=== PATIENT | female | born 1990 | race Caucasian/White ===

== ENCOUNTER 2021-08-12 13:40 | Emergency (ER) | payer OTHER, SELFPAY ==
[2021-08-12 13:41] VITALS: BP 116/74; PULSE 85; RESP 16; TEMP 35.8; O2SAT 96; BMI 30.8
[2021-08-12 14:47] LABS: Bacteria 0 SEEN /hpf (None Seen); Mucous, Urine 0 SEEN /hpf (<or=2+); Red Blood Cells-Urine 0 SEEN /hpf (0-5); Squamous Epithelial Cells - UA 0 SEEN /hpf (5-10); White Blood Cells 0 SEEN /hpf (0-5)
[2021-08-12 14:53] LABS: Color, Urine Yellow (Yellow); Glucose, Dipstick Normal (Normal); Ketone-Dipstick Negative (Negative); Leukocyte Esterase-Dipstick Negative /ul (Negative); Nitrite-Dipstick Negative (Negative); Occult Blood-Urine Negative /ul (Negative); Protein-Dipstick Negative (Negative); Urine Bilirubin Dipstick Negative (Negative); Urine Clarity Clear (Clear); Urine Urobilinogen Normal (Normal)
[2021-08-12 15:00] LABS: Absolute Lymphocyte Count 2.03 X10^3/uL (0.83-4.51); Absolute Neutrophil Count 11.4 X10^3/uL (2.0-7.7); Basophil# 0.04 X10^3/uL; Basophil% 0.3 % (0-1); Eosinophil# 0.11 X10^3/uL; Eosinophils% 0.8 % (0-5); Hematocrit 33.2 % (37-47); Hemoglobin 10.6 g/dL (12.0-15.0); Lymphocyte # 2.03 X10^3/ul (0.83-4.51); Lymphocyte % 14.3 % (19-41); Mean Corp Hgb Conc 31.9 g/dL (32-36); Mean Corpuscular Volume 84.5 fL (81-99); Mean Platelet Vol. 10.2 fl (6.2-12.0); Monocyte# 0.51 X10^3/uL; Monocyte% 3.6 % (0-10); NRBC Flagged by Analyzer 0 % (0-5); Neutrophil # 11.35 X10^3/uL (2.7-7.7); Neutrophil % 79.6 % (47-70); Platelet Count 295 K/mm3 (150-450); RBC Distribution Width CV 14.2 % (11.6-14.6); RBC Distribution Width SD 43.8 fl (35.1-43.9); Red Blood Count 3.93 M/mm3 (4.2-5.4); White Blood Count 14.2 K/mm3 (4.4-11.0)
--- NOTE | 2021-08-12 15:08 | EDS_ITS ---
HPI <OSITO Parks - Last Filed: 08/12/21 16:28> History of Present Illness Chief Complaint: General Illness Narrative Narrative: 31-year-old female who is approximately 25 weeks presents with concern for dehydration. This week she has had a cold with fatigue, runny nose, and dry cough. Earlier this week she went to urgent care and had negative Covid and influenza testing. Today she noted her heart rate was in the 130s on her Fitbit. She increased her fluids at home but it stayed in the low 100s. She also felt lightheaded and has not eaten much today. When she called her BUSINESS PROCESS ENGINEER they recommended she come to the ED for evaluation. She denies chest pain, shortness of breath, or syncope. No abdominal pain, vaginal bleeding or fluids. No urinary symptoms. PFSH <OSITO Parks - Last Filed: 08/12/21 16:28> PFSH Medical History no medical history Allergy/AdvReac Type Severity Reaction Status Date / Time No Known Allergies Allergy Verified 08/12/21 13:43 Social History Smoking Status: Never smoker ROS <OSITO Parks - Last Filed: 08/12/21 16:28> ROS ED ROS Narrative Constitutional: Negative for fever, chills, malaise. Eyes: Negative for visual change. ENT: Negative for sore throat, ear pain, rhinorrhea. CVS: Negative for palpitations, chest pain, syncope. Respiratory: Negative for shortness of breath, cough, orthopnea. GI: Positive for nausea. Negative for abdominal pain, vomiting, diarrhea, constipation, melena, hematochezia. : Negative for dysuria, hematuria or frequency. Neuro: Negative for headache, motor/sensory dysfunction. Skin: Negative for rash, abscess, or wound. Musc: Negative for joint pain, swelling, trauma. Heme: Negative for easy bruising, bleeding, lymphadenopathy. EXAM <OSITO Parks - Last Filed: 08/12/21 16:28> Physical Exam Narrative Exam Narrative: CONST: Patient sitting in no acute distress. EYES: Normal inspection. ENT: Normal inspection, moist mucous membranes. NECK: Normal inspection. RESP: No respiratory distress, CTAB. CVS: Regular rate and rhythm, no murmur, no gallop. ABD: Gravid abdomen is soft and nontender, no guarding or rebound. SKIN: Color normal, no rash, warm, dry, intact. EXTREMITIES: Normal appearance, no pedal edema. NEURO: Oriented x4. PSYCH: Normal affect. Const Vital Signs: 08/12/21 13:41 08/12/21 15:26 Temperature 96.5 F L Temperature Source Temporal Pulse Rate 85 Respiratory Rate 16 Respiratory Effort Normal Non-Labored Respiratory Pattern Normal Blood Pressure 116/74 Blood Pressure Mean 88 Pulse Ox 96 Oxygen Delivery Method Room Air <Jefferson Canchola MD - Last Filed: 08/12/21 22:53> Physical Exam Const Vital Signs: 08/12/21 13:41 08/12/21 15:26 Temperature 96.5 F L Temperature Source Temporal Pulse Rate 85 Respiratory Rate 16 Respiratory Effort Normal Non-Labored Respiratory Pattern Normal Blood Pressure 116/74 Blood Pressure Mean 88 Pulse Ox 96 Oxygen Delivery Method Room Air MDM <OSITO Parks - Last Filed: 08/12/21 16:28> [facility] Narrative Medical decision making narrative: Patient presents with concern for dehydration and second trimester . She is also had a recent cold. She appears well and nontoxic. Afebrile and vital signs within normal limits. On exam she has moist mucous membranes. Heart is regular. Lungs clear. Gravid abdomen is soft and nontender. CBC shows white count of 14.2 and mild anemia at 10.6. She does have a long history of anemia. BMP is normal. UA is negative and has no bacteria. Her rapid COVID-19 test is negative. Patient was treated with 1 L of lactated Ringer's and Zofran. Her symptoms are most consistent with a URI but with normal vital signs and work-up I feel she can be discharged home to follow- up with her BUSINESS PROCESS ENGINEER. She was comfortable with this plan and discharged in stable condition. 1. URI 2. Second trimester of Lab Data Labs: Laboratory Results - last 24 hr 08/12/21 08/12/21 08/12/21 14:35 14:40 14:40 WBC 14.2 H RBC 3.93 L Hgb 10.6 L Hct 33.2 L MCV 84.5 MCH 27.0 MCHC 31.9 L RDW Std Deviation 43.8 RDW Coeff of Miriam 14.2 Plt Count 295 MPV 10.2 Immature Gran % (Auto) 1.400 H Neut % (Auto) 79.6 H Lymph % (Auto) 14.3 L Dent % (Auto) 3.6 Eos % (Auto) 0.8 Baso % (Auto) 0.3 Absolute Neuts (auto) 11.4 H Absolute Lymphs (auto) 2.03 Nucleated RBC % 0 Sodium 137 Potassium 3.6 Chloride 107 Carbon Dioxide 27.0 Anion Gap 3 L BUN 6 L Creatinine 0.51 L Estim Creat Clear Calc 133.43 Est GFR (MDRD) Af Amer 181 Est GFR (MDRD) Non-Af 149 BUN/Creatinine Ratio 11.7 Glucose 90 Calcium 9.1 Urine Color Yellow Urine Clarity Clear Urine pH 7.0 Ur Specific Easley 1.010 Urine Protein Negative Urine Glucose (UA) Normal Urine Ketones Negative Urine Occult Blood Negative Urine Nitrite Negative Urine Bilirubin Negative Urine Urobilinogen Normal Ur Leukocyte Esterase Negative Urine RBC 0 SEEN Urine WBC 0 SEEN Ur Squamous Epith Cells 0 SEEN Urine Bacteria 0 SEEN Urine Mucus 0 SEEN <Jefferson Canchola MD - Last Filed: 08/12/21 22:53> MDM MDM Narrative Medical decision making narrative: ATTENDING NOTE: Dr. Canchola: The patient was seen in conjunction with the PA-C/nurse practitioner. I performed a history and physical, and agree with the management of this patient. I agree with noted documentation and plan. I discussed the plan of care and final disposition with the physician associate/nurse practitioner. Concern for dehydration with second trimester , concern for Covid. Afebrile. Vital signs noted. Gravid uterus. Regular rate and rhythm. Lungs clear to auscultation bilaterally. Check labs. Check Covid swab. Discharge. Lab Data Attestation: I reviewed the patient's lab results. Labs: Laboratory Results - last 24 hr 08/12/21 08/12/21 08/12/21 14:35 14:40 14:40 WBC 14.2 H RBC 3.93 L Hgb 10.6 L Hct 33.2 L MCV 84.5 MCH 27.0 MCHC 31.9 L RDW Std Deviation 43.8 RDW Coeff of Miriam 14.2 Plt Count 295 MPV 10.2 Immature Gran % (Auto) 1.400 H Neut % (Auto) 79.6 H Lymph % (Auto) 14.3 L Dent % (Auto) 3.6 Eos % (Auto) 0.8 Baso % (Auto) 0.3 Absolute Neuts (auto) 11.4 H Absolute Lymphs (auto) 2.03 Nucleated RBC % 0 Sodium 137 Potassium 3.6 Chloride 107 Carbon Dioxide 27.0 Anion Gap 3 L BUN 6 L Creatinine 0.51 L Estim Creat Clear Calc 133.43 Est GFR (MDRD) Af Amer 181 Est GFR (MDRD) Non-Af 149 BUN/Creatinine Ratio 11.7 Glucose 90 Calcium 9.1 Urine Color Yellow Urine Clarity Clear Urine pH 7.0 Ur Specific Easley 1.010 Urine Protein Negative Urine Glucose (UA) Normal Urine Ketones Negative Urine Occult Blood Negative Urine Nitrite Negative Urine Bilirubin Negative Urine Urobilinogen Normal Ur Leukocyte Esterase Negative Urine RBC 0 SEEN Urine WBC 0 SEEN Ur Squamous Epith Cells 0 SEEN Urine Bacteria 0 SEEN Urine Mucus 0 SEEN Discharge Plan Triage Chief Complaint: General Illness ED Provider: Sondra Kerr Dx/Rx/DC Orders Clinical Impression: URI (upper respiratory infection) Instructions: ED URI, Viral, No Abx (Adult) Primary Care Provider: Huang Messer Referrals: Huang Messer MD [Primary Care Provider] - Activity Restrictions/Additional Instructions: Today your blood work showed that you are mildly anemic. Your electrolytes and kidney function were normal. Your urine look normal. There was no evidence of dehydration in your blood work. The Covid test was negative. With your cold and fatigue you likely have a viral illness. You were given IV fluids and nausea medicine and we feel you are safe to go home and follow-up with your BUSINESS PROCESS ENGINEER. Disposition Disposition: Home, Self Care Discharge Date/Time: 08/12/21 16:28
[2021-08-12 15:15] LABS: Anion Gap 3 (5-15); BUN 6 mg/dL (7-18); BUN/Creat Ratio 11.7 RATIO (10-20); Calcium,Total 9.1 mg/dL (8.5-10.1); Chloride 107 mmol/L (98-107); Creatinine, Serum 0.51 mg/dL (0.55-1.02); EST Glomerular Filtration Rate 149 mL/min (>60); Est Glom Filt Rate - Afr Amer 181 mL/min (>60); Estimated Creatinine Clearance 133.43 ml/min; Glucose 90 mg/dL (74-106); Potassium 3.6 mmol/L (3.5-5.1); Sodium Level 137 mmol/L (136-145)
[2021-08-12] MEDS: Lactated Ringers 1,000 ML 999 ML IV (15:24)
== END 2021-08-12 16:28 | disposition home or self-care (01) ==
PROVIDERS: Emergency Medicine; Emergency Provider Physician Assistant; PCP Family Medicine; Visit Provider Physician Assistant
DX: O99.512 Diseases of the respiratory system complicating pregnancy, second trimester (principal); J06.9 Acute upper respiratory infection, unspecified; O99.012 Anemia complicating pregnancy, second trimester; Z20.822 Contact with and (suspected) exposure to COVID-19; Z3A.25 25 weeks gestation of pregnancy
CPT/HCPCS: 80048; 81001; 85025; 87086; 87088; 87811; 96360; 99282; J7120; A4216; J2405

== ENCOUNTER 2021-11-21 19:40 | Inpatient (IN) | payer OTHER, SELFPAY ==
[2021-11-21 19:27] VITALS: BP 130/69; PULSE 93
[2021-11-21 19:36] VITALS: BMI 34.5
[2021-11-21 20:29] LABS: Absolute Lymphocyte Count 2.16 X10^3/uL (0.83-4.51); Absolute Neutrophil Count 9.5 X10^3/uL (2.0-7.7); Basophil# 0.03 X10^3/uL; Basophil% 0.2 % (0-1); Eosinophil# 0.08 X10^3/uL; Eosinophils% 0.6 % (0-5); Hematocrit 34.5 % (37-47); Hemoglobin 10.9 g/dL (12.0-15.0); Lymphocyte # 2.16 X10^3/ul (0.83-4.51); Lymphocyte % 17.3 % (19-41); Mean Corp Hgb Conc 31.6 g/dL (32-36); Mean Corpuscular Hgb 26.8 pg (27.0-32.0); Mean Platelet Vol. 11.6 fl (6.2-12.0); Monocyte# 0.55 X10^3/uL; Monocyte% 4.4 % (0-10); NRBC Flagged by Analyzer 0 % (0-5); Neutrophil # 9.48 X10^3/uL (2.7-7.7); Neutrophil % 76.3 % (47-70); Platelet Count 262 K/mm3 (150-450); RBC Distribution Width CV 14.2 % (11.6-14.6); RBC Distribution Width SD 43.6 fl (35.1-43.9); Red Blood Count 4.06 M/mm3 (4.2-5.4); White Blood Count 12.5 K/mm3 (4.4-11.0)
[2021-11-21 21:21] VITALS: PULSE 90
[2021-11-21 21:43] VITALS: BP 124/44; PULSE 116; TEMP 37.1; O2SAT 100
[2021-11-21 22:26] VITALS: PULSE 109; O2SAT 97
--- NOTE | 2021-11-21 22:31 | HP.PCM.OB_ITS ---
HPI - General General Date of Admission: 11/21/21 HPI Narrative JOSUE BURDEN, is a 31 F who presents in active labor at term. at 39w3d. Contractions started around 1730 and progressed in strength and frequency. complicated by UTI and anemia in . Maternal Data Information FEROZ Calculator Estimated Delivery Date Method Current WG Current Estimate 11/25/21 Manual 39w 4d Final FEROZ: 11/25/21 PFSH PFS Medical History (Updated 11/22/21 @ 05:45 by Clair Schulz CNM) Anxiety Chlamydia infection affecting Depression Ingrown toenail Trauma Home Medications ferrous sulfate 325 mg (65 mg iron) tablet 325 mg PO DAILY Check with primary doctor 11/21/21 [History Last Taken 11/21/21 09:00] [id number] 1 mg tablet 1 tab PO DAILY Check with primary doctor 11/21/21 [History Last Taken 11/21/21 09:00] Allergy/AdvReac Type Severity Reaction Status Date / Time No Known Allergies Allergy Verified 11/21/21 19:37 Surgical History (Updated 11/21/21 @ 20:30 by Yeni Prieto) Haz[place] teeth removed Social History Smoking Status: Never smoker History Elective abortions Hx Para 2 Spontaneous abortions Hx # Term Pregnancies Ectopic pregnancies Hx # Pregnancies Multiple births # of living children Visit Details OB Flowsheet Initial Weight: Not Recorded Date -?-?-?-?-?-?--?-?-?-?-?-?- EGA Weight BP Urine Prot -?-?-?-?-?-?-?-?-?-?-?-?- Glucose FHR FuHt Pres Dilation -?-?-?-?-?-?-?-?-?-?-?-?- Effaced St Visit Note 11/21/21 -?-?-?-?-?-?-?-?-?-?-?-?- 39w 3d 195 lb 1.745 oz 130/ 69 124/44 111/71 141/73 128/66 136/75 112/56 104/56 111/59 107/58 121/58 192/119 107/58 142/59 103/61 135/57 112/53 -?-?-?-?-?-?-?-?-?-?-?-?- -?-?-?-?-?-?-?-?-?-?-?-?- NST FHR Rate Baby A Baseline: 145 with increases and no decreases. Intermittent auscultation FHR Category:: Category I Uterine Activity:: every 3-4 ROS Constitutional Constitutional: Reports systems reviewed and no addt'l complaints, except as documented; Denies headache(s) Eyes Eyes: Denies acute decrease in peripheral vision, blurry vision or change in vision ENT HEENT: Reports systems reviewed and no addt'l complaints, except as documented Cardiovascular Cardiovascular: Denies chest pain or dizziness Respiratory/Chest Respiratory/Chest: Denies cough, dyspnea, dyspnea on exertion, shortness of br eath at rest or shortness of breath with exertion Gastrointestinal Gastrointestinal: Denies abdominal pain, diarrhea, nausea or vomiting Genitourinary Genitourinary: Denies abdominal discomfort or movement Musculoskeletal Musculoskeletal: Denies limited range of motion Integumentary Integumentary: Reports systems reviewed and no addt'l complaints, except as documented Neurologic Neurologic: Reports systems reviewed and no addt'l complaints, except as documented Psychiatric Psychiatric: Reports systems reviewed and no addt'l complaints, except as documented Endocrine Endocrinology: Reports systems reviewed and no addt'l complaints, except as do cumented Hematologic/Lymphatic Hematologic/Lymphatic: Reports systems reviewed and no addt'l complaints, except as documented Allergic/Immunologic Allergic/Immunologic: Reports systems reviewed and no addt'l complaints, except as documented Vital Signs Vital Signs Vital Signs: 11/21/21 19:27 11/21/21 19:27 11/21/21 21:21 Temperature Temperature Source Pulse Rate 93 90 Blood Pressure 130/69 H BP Systolic 130 BP Diastolic 69 Pulse Ox 11/21/21 21:43 11/21/21 21:43 11/21/21 21:43 Temperature Temperature Source Oral Pulse Rate 116 H Blood Pressure 124/44 H BP Systolic 124 BP Diastolic 44 Pulse Ox 11/21/21 21:43 11/21/21 21:43 Temperature 98.7 F Temperature Source Pulse Rate Blood Pressure BP Systolic BP Diastolic Pulse Ox 100 Weight Weight: 195 lb 1.745 oz Body Mass Index (BMI) 34.5 Physical Exam Const alert and oriented x3 General Appearance: cooperative Orientation / Consciousness: awake, oriented to person, oriented to place and oriented to time Exam Limitations: no limitations HEENT normocephalic Head and Scalp: normal to inspection, normocephalic and atraumatic Face and Sinus: normal facial exam Eyes General Eye: normal appearance of both eyes Neck full ROM Chest Chest: symmetrical chest wall rise Resp normal respiratory effort and normal air movement Auscultation: clear to auscultation bilaterally Cardio regular rate, regular rhythm, S1 normal heart sound, S2 normal heart sound, no murmurs, no rub, no gallops and no clicks GI normal to inspection, nondistended, normoactive bowel sounds and non-tender appearance of the vagina normal Bladder / Kidney Exam: no CVA tenderness Manual OB Exam: estimated gestational size appropriate, presentation cephalic, dilated 6cm, effaced 80, station -2 and other AROM for large amount of clear fluid Back/Spine normal ROM Extremity normal to inspection and full ROM Skin no rashes or lesions noted Neuro oriented x3, CN's II-XII intact bilaterally and moves all extremities Sensorium / Orientation: awake, alert and oriented to person Motor Exam: clonus absent Deep Tendon Reflexes: Rt Patellar (L4): 2+ and Lt Patellar (L4): 2+ Labs Labs Labs: Blood Type O POSITIVE Antibody Screen NEGATIVE Hct 34.5 % (37-47) L Hgb 10.9 g/dL (12.0-15.0) L GBS negative RPR negative O positive, antibody negative HBsAG negative HepC negative HIV negative GC/CT negative Assessment & Plan (1) Active labor at term: (2) History of depression: (3) Anemia affecting : PLAN: Plan 1) Admit to labor and delivery 2) Routine labs and covid screening 3) GBS negative 4) Would like unmedicated , ok for nitrous or warm water immersion 5) Intermittent auscultation 6) [facility] physician and notified of patient status
[2021-11-21 22:57] VITALS: PULSE 93; TEMP 36.4; O2SAT 97
[2021-11-21 23:30] VITALS: BP 111/71; PULSE 93; TEMP 36.1; O2SAT 95
[2021-11-22] VITALS (48 sets, daily range): BP systolic 103–192; BP diastolic 53–119; PULSE 58–121; RESP 16–18; TEMP 36.2–37; O2SAT 82–100
[2021-11-22] MEDS: 0.9% Saline Lock 10 ML Syringe IV ×2 (00:43→08:06)
[2021-11-22] MEDS: LACTATED RINGERS 500 ML 999 ML IV (00:46)
[2021-11-22] MEDS: Lactated Ringers 1,000 ML 200 ML IV (00:46)
[2021-11-22] MEDS: fentaNYL-bupivacaine (epidural) 100 ML BAG EPIDURAL (01:39)
--- NOTE | 2021-11-22 05:27 | PLAC_PTH ---
PATIENT: JOSUE BURDEN LOC: WP U#:[id number] AGE/SX: 31/F ROOM: WP017 RE11/21/[address]: Clair Schulz CNM : 1990 BED: 1 DIS: 11/23/2021 SPEC #: [id number] RECD: 11/22/21 09:04 STATUS: ISAIAH HEATHER #: [id number] LATRICIA: 11/22/21 05:[address]: Clair Schulz DEPT: SURGICAL PATHOLOGY RECD BY: aPm Hurtado ENTERED: 11/22/21 10:08 SP TYPE: PLACENTA OTHR DR: Huang Messer MD Tissues: Placenta, NOS Procedures: Surgery Specimen Level V HEADER OPERATION: Vaginal delivery PRE-OP DIAGNOSIS: Cord insertion TISSUE SUBMITTED: Placenta MICROSCOPIC DIAGNOSIS Placenta: Placental disc - third trimester placenta (550 gm). - Focal area of infarction (4 cm in greatest dimension). - Submembranous fibrinous plaque (1.5 cm in greatest dimension). - Chronic villitis of unknown etiology. - ncreased intervillous and perivillous fibrin deposition. Membranes - no pathologic diagnosis. Umbilical cord - three blood vessels and no pathologic diagnosis. SJ:maurice 11/24/2021 MICROSCOPIC DESCRIPTION Slides are reviewed. GROSS DESCRIPTION SPECIMEN: PLACENTA / CLINICAL INFORMATION: A. Weight: 3.32 kg B. Gestational Age: 39 weeks C. Sex: Female PLACENTAL WEIGHT (POST FIXATION): 550 gm PLACENTAL DIMENSIONS: Main lobe measures 17 x 15 x 4 cm and succenturiate lobe measures 4 x 3 x 1 cm. PLACENTAL SHAPE: Usual ovoid with a succenturiate lobe PLACENTAL WEIGHT FOR GESTATIONAL AGE: Within 10-99th percentile MEMBRANES - Present A. Insertion: Marginal B. Site of rupture from edge: 6 cm from edge of placental disc C. Color of membrane: Barrow-valencia D. Abnormalities: None UMBILICAL CORD - Present A. Color: Barrow-valencia B. Insertion: Marginal C. Length: 34 cm D. Diameter: 1 cm E. Number of vessels: Three F. Abnormalities: Focal area show increased spiraling. PLACENTAL DISC - Present A. Color of surface: Barrow-valencia B. surface abnormalities: surface show focal area of submembranous hemorrhage. C. Maternal cotyledons: Intact with minimal tears D. Attached retro placental clot: No clot E. Cut surface: Dark red and spongy F. Lesions: Sections reveal two barrow, indurated areas, larger measuring 4 x 3 x 2 cm and smaller submembranous 1.5 cm in greatest dimension. Focal ill-defined firm areas are also noted. G. Separate clot: Absent SECTIONS SUBMITTED: 1. Membrane roll 2. Cord, maternal end 3. Cord, end, succenturiate lobe 4. Placental disc, and maternal surfaces, larger lesion 5. Placental disc, and maternal surfaces, smaller submembranous lesion 6. Placental disc, and maternal surfaces, firm area 7. Placental disc, and maternal surfaces, firm area 8. Placental disc, and maternal surfaces HARRY:maurice 11/23/2021 TC:5 CPT: 78976
[2021-11-22] MEDS: Oxytocin 30 units/NS 500 ml 30 UNITS/500 ML IV.SOLN 334 UNITS IV (05:31)
--- NOTE | 2021-11-22 05:45 | EX.PCM.OBRPT ---
Assessment & Plan (1) Vaginal delivery: (2) Lactating mother: Maternal Data Information FEROZ Calculator Estimated Delivery Date Method Current WG Current Estimate 11/25/21 Manual 39w 4d Vaginal Delivery Maternal Presentation Maternal Presentation: active labor Operative Information Date of Procedure: 11/22/21 Pre-Operative Diagnosis: active labor Post-Operative Diagnosis: Vaginal delivery Type of Anesthesia: Epidural Estimated Blood Loss: 300 ml Time of Delivery: 05:46 Findings Description of Procedure: Progressed to complete. Epidural for pain management. of viable female infant over intact perineum. APGARS 8,9. head delivered with body immediately forthcoming. CANx1 loose, delivered through. Infant placed on maternal abdomen, strong cry. Mouth and nares wiped for secretions. Pitocin started for active 3rd stage management. Cord clamped and cut by FOB after pulsations ceased, delayed cord clamping. Placenta delivered intact, 3 vessel cord. Appared to be velamentous with marginal insertion, to pathology. Perineum inspected and intact. Vaginal sweep completed. Sponge and instrument count correct. Fundus firm, EBL 300ml. Mom and baby stable, family bonding well. Planning to breastfeed. notified of delivery. Presentation: TRIP Amniotic Membrane Rupture Type: Artificial Amniotic Fluid Description: Clear Placental Delivery Description: Spontaneous Placenta Disposition: Sent to Pathology Cord Vessel Description: 3 Vessels Cord Entanglement: Around neck x 1, loose Nuchal Cord Compression: Without compression Infant A Gender: Female (1 minute): 8 (5 minute): 9 Delayed Cord Clamping: Yes Post Vaginal Delivery Medications Given After Delivery: IV Pitocin Episiotomy Description: None Laceration: None
[2021-11-22 09:03] LABS: Pathology Specimen OB SEE PATHOLOGY REPORT
[2021-11-22] MEDS: Ibuprofen 600 MG Tablet PO ×2 (13:02→20:53)
--- NOTE | 2021-11-22 20:38 | PCM.PN.OB ---
Subjective Subjective Patient seen at bedside. Feeling good. Ambulating and voiding without difficulty. with minimal support from . Desires discharge home tomorrow. Objective Data Objective Data Vital Signs: Vital Signs Temp Pulse Resp BP Pulse Ox 97.4 F L 94 16 121/60 H 100 11/22/21 13:46 11/22/21 13:47 11/22/21 13:46 11/22/21 13:47 11/22/21 04:58 Weight: 195 lb 1.745 oz Body Mass Index (BMI) 34.5 Intake & Output: Intake and Output for Last 24 Hours 11/20/21 11/21/21 11/22/21 23:59 23:59 23:59 Intake Total 2296.67 / 2296.67 Output Total 900 / 900 Balance 1396.67 / 1396.67 Lab / Micro Data Result Diagrams: 11/21/21 19:53 Labs: Laboratory Results - last 24 hr 11/21/21 19:53: Blood Type O POSITIVE, Antibody Screen NEGATIVE Micro: Microbiology 11/21/21 19:53 Nasal Secretion SARS-CoV-2 Antigen (Rapid) - Final ROS Eyes Eyes: Denies blurry vision, change in vision or spots in vision ENT HEENT: Denies dizziness or headache(s) Cardiovascular Cardiovascular: Denies abdominal pain, chest pain or dyspnea Respiratory/Chest Respiratory/Chest: Denies cough, dyspnea, shortness of breath at rest or shortness of breath with exertion Gastrointestinal Gastrointestinal: Denies abdominal pain, diarrhea or vomiting Genitourinary Genitourinary: Denies change in urinary stream, difficulty urinating or dysuria Musculoskeletal Musculoskeletal: Reports none Integumentary Integumentary: Denies rash Neurologic Neurologic: Denies dizziness, headache(s), memory loss or weakness Physical Exam Const alert and no apparent distress General Appearance: cooperative and comfortable Exam Limitations: no limitations HEENT normocephalic Eyes General Eye: normal appearance of both eyes Neck full ROM General: normal visual inspection Chest Chest: symmetrical chest wall rise Resp normal respiratory effort and normal air movement Effort and Inspection: symmetric chest movement Auscultation: clear to auscultation bilaterally Cardio regular rate and regular rhythm GI normal to inspection, nondistended, normoactive bowel sounds Back/Spine normal ROM Extremity full ROM and no calf tenderness General Extremity: normal exam except as noted Skin no rashes or lesions noted Neuro CN's II-XII intact bilaterally Psych mental status grossly normal Assessment & Plan (1) Lactating mother: (2) Vaginal delivery: PLAN: Plan PPD 1 Routine care support Anticipate discharge home tomorrow
--- NOTE | 2021-11-22 21:18 | NURSING ---
Upon shift assessment, this RN noted that pt's IV had been discontinued before this shift began. TalaRN
[2021-11-23 05:05] VITALS: BP 108/57; PULSE 81; RESP 16; TEMP 36.1; O2SAT 97
[2021-11-23 05:08] VITALS: BP 108/57; PULSE 82
[2021-11-23 07:29] LABS: Hematocrit 34.4 % (37-47); Hemoglobin 10.8 g/dL (12.0-15.0); Mean Corp Hgb Conc 31.4 g/dL (32-36); Mean Corpuscular Hgb 27.3 pg (27.0-32.0); Mean Corpuscular Volume 86.9 fL (81-99); Mean Platelet Vol. 11.4 fl (6.2-12.0); Platelet Count 241 K/mm3 (150-450); RBC Distribution Width CV 14.5 % (11.6-14.6); RBC Distribution Width SD 45.3 fl (35.1-43.9); Red Blood Count 3.96 M/mm3 (4.2-5.4); White Blood Count 11.2 K/mm3 (4.4-11.0)
[2021-11-23 07:39] VITALS: BP 125/61; PULSE 76; O2SAT 96
[2021-11-23 07:40] VITALS: BP 125/61; PULSE 86; RESP 18; TEMP 36.3; O2SAT 94
--- NOTE | 2021-11-23 08:43 | PCM.PN.OB ---
Subjective Subjective Pain well controlled. Average lochia. No other complaints. Objective Data Objective Data Vital Signs: Vital Signs Temp Pulse Resp BP Pulse Ox 97 F L 76 16 125/61 H 96 11/23/21 05:05 11/23/21 07:39 11/23/21 05:05 11/23/21 07:39 11/23/21 07:39 Oxygen Delivery Method Room Air Weight: 88.5 kg Body Mass Index (BMI) 34.5 Intake & Output: Intake and Output for Last 24 Hours 11/21/21 11/22/21 11/23/21 23:59 23:59 23:59 Intake Total 2296.67 / 2296.67 Output Total 900 / 900 Balance 1396.67 / 1396.67 Lab / Micro Data Result Diagrams: 11/23/21 07:20 Labs: Laboratory Results - last 24 hr 11/23/21 07:20: WBC 11.2 H, RBC 3.96 L, Hgb 10.8 L, Hct 34.4 L, MCV 86.9, MCH 27.3, MCHC 31.4 L, RDW Std Deviation 45.3 H, RDW Coeff of Miriam 14.5, Plt Count 241, MPV 11.4 Micro: Microbiology 11/21/21 19:53 Nasal Secretion SARS-CoV-2 Antigen (Rapid) - Final Physical Exam Const alert and no apparent distress Narrative: Fundus firm, below umbilicus. Assessment & Plan (1) Vaginal delivery: PLAN: day #1 status post vaginal delivery. Patient and are doing. is breast-feeding. Patient desires discharge home today.
--- NOTE | 2021-11-23 08:45 | PCM.DC.SUM ---
Providers Date of Admission: 11/21/21 Primary Care Physician: Huang Messer MD Reason For Visit: LABOR Diagnosis Discharge Diagnosis (1) Vaginal delivery: Status: Acute Code(s): O80 - Encounter for full-term uncomplicated delivery Plan: day #1 status post vaginal delivery. Patient and are doing. is breast-feeding. Patient desires discharge home today. Medications at Discharge Home Medications ferrous sulfate 325 mg (65 mg iron) tablet 325 mg PO DAILY Check with primary doctor 11/21/21 [id number] 1 mg tablet 1 tab PO DAILY Check with primary doctor 11/21/21 Hospital Course Operations - (Spontaneous vaginal delivery on 11/22/2021) Procedures None Summary of Care Provided Hospital Course: 31-year-old multigravida female admitted at 39+ gestational weeks with labor. She had an uncomplicated vaginal delivery on 11/22/2021. By day 1 she was ambulating, urinating tolerating regular diet without difficulty and desired discharge home with routine follow-up and prescriptions. Weight / BMI Weight Weight: 88.5 kg Body Mass Index (BMI) 34.5 ABG / Lab / Microbiology Data Result Diagrams: 11/23/21 07:20 Laboratory: Laboratory Results - last 24 hr 11/23/21 07:20: WBC 11.2 H, RBC 3.96 L, Hgb 10.8 L, Hct 34.4 L, MCV 86.9, MCH 27.3, MCHC 31.4 L, RDW Std Deviation 45.3 H, RDW Coeff of Miriam 14.5, Plt Count 241, MPV 11.4 Microbiology: Microbiology 11/21/21 19:53 Nasal Secretion SARS-CoV-2 Antigen (Rapid) - Final D/C Instructions May resume sexual activity in: 6 weeks Additional Dressing/Incision Instructions: Follow-up in the office in 1-2 in 6 weeks or as needed. Please Follow Up With: Mercy Phillip MD When: Follow up with our office in 1-2 and 6 weeks or as needed. [phone] Meaningful Use Info Meaningful Use Diagnoses (Choose all that apply): None applicable Discharge Plan Admission Admit Date/Time: 11/21/21 19:40 Primary Reason for Your Visit: Vaginal delivery Attending Provider: Clair Schulz Primary Care Provider: Huang Messer Discharge Orders/Prescriptions Prescriptions: No Action ferrous sulfate 325 mg (65 mg iron) Tablet 325 mg PO DAILY 1 mg Tablet 1 tab PO DAILY Referrals / Follow Up: Huang Messer MD [Primary Care Provider] - Disposition Disposition (needs filled in before D/C Order can be placed): Home, Self Care
--- NOTE | 2021-11-23 10:30 | NURSING ---
Half dollar sized clot in toilet after pt urinated. Educated pt on clot size when discharged and told pt to inform this RN if anymore clots noted. Bleeding assessed and scant amount in pad, fundus -1 and midline. RN will continue to monitor.
[2021-11-23 13:16] VITALS: BP 124/83; PULSE 87; PULSE 93; RESP 16; TEMP 36.4; O2SAT 95
--- NOTE | 2021-11-23 13:32 | NURSING ---
Pt has follow up appt with Flaca BERGER Friday 07/28 at 10am. Pt to call to schedule 6 week follow up appointment with OB office. Pt okay to be discharged per [facility].
== END 2021-11-23 13:57 | disposition home or self-care (01) | DRG 807 ==
LOC: WP 20:06 → WPOUT 11-22 09:38
PROVIDERS: Admitting Provider Advanced Practice Midwife; PCP Family Medicine; Visit Provider Advanced Practice Midwife
DX: O99.02 Anemia complicating childbirth (principal); Z37.0 Single live birth; O69.81X0 Labor and delivery complicated by cord around neck, without compression, not applicable or unspecified; Z20.822 Contact with and (suspected) exposure to COVID-19; Z3A.39 39 weeks gestation of pregnancy; Z79.899 Other long term (current) drug therapy
CPT/HCPCS: 36415; 59025; 59050; 85025; 85027; 86850; 86900; 86901; 87426; 88307; 99218; J7120; A4216; G0378

== ENCOUNTER → 2024-01-24 | Outpatient (CLI) | payer OTHER, SELFPAY ==
--- NOTE | 2024-01-24 16:30 | US_ITS ---
INDICATION: UTI EXAMINATION: Ultrasound US Kidney(s) complete (eg, kidneys and bladder) TECHNIQUE: Soares scale and color doppler images were obtained of the kidneys. COMPARISON: No relevant prior comparison study available FINDINGS: RIGHT KIDNEY: 12 x 4.7 x 4.9 cm. There is no hydronephrosis. No shadowing calculus, focal lesion or perinephric collection is demonstrated. LEFT KIDNEY: 11.3 x 4.7 x 4.9 cm. There is no hydronephrosis. No shadowing calculus, focal lesion or perinephric collection is demonstrated. URINARY BLADDER: Prevoid bladder volume of 745 mL. Post void residual volume of 241 mL. The ureteral jets are not seen. No bladder wall thickening. US/Kidney and Bladder IMPRESSION: Normal appearance of the kidneys. Post void bladder volume of 241 mL. Electronically Signed: Jordi Olmos MD at 9:13 EDT ,
== END | disposition home or self-care (01) ==
LOC: US 16:28
PROVIDERS: PCP Family Medicine; Referring Provider Urology; Visit Provider Urology
DX: N39.0 Urinary tract infection, site not specified (principal)
CPT/HCPCS: 76770

== ENCOUNTER 2024-01-27 14:09 | Emergency (ER) | payer OTHER, SELFPAY ==
[2024-01-27 14:09] VITALS: BP 109/79; PULSE 72; RESP 16; TEMP 36.6; O2SAT 100; BMI 32.3
[2024-01-27 14:41] LABS: Bacteria 0 SEEN /hpf (None Seen); Mucous, Urine 0 SEEN /hpf (<or=2+); Red Blood Cells-Urine 0 SEEN /hpf (0-5); Squamous Epithelial Cells - UA 0 SEEN /hpf (5-10); White Blood Cells 0 SEEN /hpf (0-5)
[2024-01-27 14:48] LABS: Color, Urine Straw (Yellow); Glucose, Dipstick Normal (Normal); Ketone-Dipstick Negative (Negative); Leukocyte Esterase-Dipstick Negative /ul (Negative); Nitrite-Dipstick Negative (Negative); Occult Blood-Urine Negative /ul (Negative); Protein-Dipstick Negative (Negative); Specific Gravity, Urine 1.005 (1.002-1.030); Urine Bilirubin Dipstick Negative (Negative); Urine Clarity Clear (Clear); Urine Urobilinogen Normal (Normal); Urine pH 6.5 (5.0 - 8.0)
[2024-01-27 14:55] LABS: Internal QC Validated? YES +Cl - CLEAR BKGD; Pregnancy, Urine Negative Negative; Record Kit Lot#,Urine Preg HCG0000772476
--- NOTE | 2024-01-27 15:35 | EX.ED.DYSGE1 ---
HPI History of Present Illness Chief Complaint: General Illness Detail of Chief Complaint: Pain left scapular region, chills, nausea and vomiting Informant: patient Onset/Context/Timing Onset: Days (Detailed HPI narrative) Context: Sudden Onset Timing: Intermittent Quality: Sharp Location: Left scapular region Current Severity: Mild Maximum Severity: Moderate Worsened by: Nothing specific Relieved by: Initially NSAIDs Associated Symptoms Associated Symptoms: Today nausea and vomiting x 3 Narrative Narrative: Patient is a patient of Dr. Symone Lizarraga. Since she had reported history of kidney infection a year ago ultrasound was ordered. This performed on . The impression read normal appearance of the kidneys. Postvoid bladder volume is 241. Prevoid bladder volume was 745 mL. Patient is complaining of intermittent sharp transient pain with a persistent dull discomfort in the left scapular region. She reported chills today. Did not take her temperature. She has had 3 episodes of vomiting. She states the emesis is clear in color. She denies upper respiratory symptoms. She denies dyspnea or [place] exertion. She denies dysuria, frequency, urgency or hematuria. She denies abdominal pain. She denies change in bowels. Prior similar symptoms: No Recent Illness/Hospitalization: No PFSH PFSH Medical History Vaginal delivery Anemia affecting History of depression Ingrown toenail Chlamydia infection affecting Trauma Anxiety Depression Home Medications ?Medication ?Instructions ?Recorded ?Last Taken ?Type ferrous sulfate 325 mg (65 mg 325 mg PO DAILY Check with primary 11/21/21 11/21/21 09:00 History iron) tablet doctor [id number] 1 mg 1 tab PO DAILY Check with primary 11/21/21 11/21/21 09:00 History tablet doctor Allergy/AdvReac Type Severity Reaction Status Date / Time No Known Allergies Allergy Verified 01/27/24 14:12 Surgical History [place] teeth removed Social History Smoking Status: Never smoker ROS ROS ED Constitutional Constitutional ED: Reports chills; Denies fever(s), subjective or sweats ENT ENT ED: Denies ear pain, rhinorrhea or sore throat Cardiovascular Cardiovascular: Denies chest pain, orthopnea, palpitations, paroxysmal nocturnal dyspnea or racing heartbeat Respiratory/Chest Respiratory/Chest: Denies cough, dyspnea, dyspnea on exertion, orthopnea or paroxysmal nocturnal dyspnea Gastrointestinal Gastrointestinal: Reports nausea and vomiting; Denies abdominal pain, constipation, diarrhea or melena Genitourinary Genitourinary ED: Reports LMP (females 10-50) Details: Comment: (Patient states her menses is due. had a vasectomy.); Denies dysuria, hematuria or urinary frequency Musculoskeletal Musculoskeletal: Reports back pain; Denies arthralgias, myalgias or neck pain Integumentary Denies rash Neurologic Neurologic: Denies headache(s), paresthesias or weakness Psychiatric Psychiatric: Denies anxiety or depression Endocrine Endocrinology: Denies cold intolerance or heat intolerance Hematologic/Lymphatic Hematologic/Lymphatic: Reports systems reviewed and no addt'l complaints, except as documented EXAM Physical Exam Const Vital Signs: 01/27/24 14:09 01/27/24 15:18 01/27/24 16:09 Temperature 98 F Temperature Source Temporal Pulse Rate 72 70 Respiratory Rate 16 16 Respiratory Effort Normal Respiratory Pattern Normal Blood Pressure 109/79 102/67 Blood Pressure Mean 89 78 Pulse Ox 100 98 Oxygen Delivery Method Room Air Room Air Positive well nourished and well developed General Appearance ED: well developed and NAD; Negative for cyanotic, diaphoretic or pallor HEENT Reports moist mucous membranes HEENT Narrative: Head is atraumatic normocephalic. Ears normal. Nares patent. Eyes PERRL and EOMs intact bilaterally General Eye ED: Negative for pale conjunctiva or scleral icterus Neck no lymphadenopathy, supple and no JVD Chest Wall Chest Narrative: Palpation was normal. Pushing on her chest causes pain posteriorly. Resp normal respiratory effort and clear to auscultation bilaterally Cardio regular rate, regular rhythm, S1 normal heart sound, S2 normal heart sound and no murmurs GI normal to inspection, nondistended, normoactive bowel sounds, non-tender and non-distended; Negative for hepatosplenomegaly or no masses GI Narrative: Patient is status postcholecystectomy. Scars noted and well-healed. Surgery July of this year. Back/Spine no CVA tenderness Thoracic Spine / Upper Back: Negative for thoracic spinal tenderness Lumbar Spine / Lower Back: Negative for lumbar spinal tenderness Extremity normal to inspection General Extremety ED: Negative for edema or tenderness General Extremity: Negative for edema Neuro oriented x3 and CN's II-XII intact bilaterally Sensorium / Orientation: alert Psych mental status grossly normal Skin no rashes or lesions noted, no wounds and skin turgor normal General Skin Exam: elasticity normal; Negative for jaundice or pallor MDM MDM MDM Narrative Medical decision making narrative: Differential diagnosis would include atypical presentation for pyelonephritis, pneumonia, musculoskeletal pain. Patient's [place] score is less than 3 and PERC negative. Therefore D-dimer is not ordered. Chest x-ray was obtained to assess for pneumonia. UA was ordered per nurse protocol which was negative. Since patient complained of shaking chills CBC was obtained assess white count differential. Lab Data Attestation: I reviewed the patient's lab results. Lab results narrative: UA is negative. CBC is normal. Basic metabolic panel is unremarkable. Chloride is slightly elevated 112. Labs: Laboratory Results - last 24 hr 01/27/24 01/27/24 14:35 16:00 WBC 8.8 RBC 5.14 Hgb 13.3 Hct 42.1 MCV 81.9 MCH 25.9 L MCHC 31.6 L RDW Std Deviation 39.4 RDW Coeff of Miriam 13.2 Plt Count 320 MPV 10.7 Immature Gran % (Auto) 0.200 Neut % (Auto) 50.7 Lymph % (Auto) 37.5 Person % (Auto) 8.2 Eos % (Auto) 2.6 Baso % (Auto) 0.8 Absolute Neuts (auto) 4.5 Absolute Lymphs (auto) 3.29 Nucleated RBC % 0 Sodium 138 Potassium TNP Chloride 112 H Carbon Dioxide 22.0 Anion Gap 4 L BUN 10 Creatinine 0.71 Estim Creat Clear Calc 114.85 Est GFR (MDRD) Af Amer 122 Est GFR (MDRD) Non-Af 101 BUN/Creatinine Ratio 14.1 Glucose 93 Calcium 9.5 Urine Color Straw Urine Clarity Clear Urine pH 6.5 Ur Specific [place] 1.005 Urine Protein Negative Urine Glucose (UA) Normal Urine Ketones Negative Urine Occult Blood Negative Urine Nitrite Negative Urine Bilirubin Negative Urine Urobilinogen Normal Ur Leukocyte Esterase Negative Urine RBC 0 SEEN Urine WBC 0 SEEN Ur Squamous Epith Cells 0 SEEN Urine Bacteria 0 SEEN Urine Mucus 0 SEEN Urine Test Negative Radiography Chest X-Ray - ED: 2 View and Read by ED Physician (Independent reviewed and interpreted by me as negative. Cardiac silhouette size normal. Lung parenchyma normal. There is no effusion or pneumothorax. [place] structures unremarkable.) Diagnostic Testing: Clinical Impression(s) from Imaging Studies Chest X-Ray 01/27/24 16:30 IMPRESSION: No radiographic evidence of acute cardiopulmonary disease. Electronically Signed: Sal Paiz MD at 17:08 EDT Reading Location ID and State: [facility] / [place] , Service support , Treatment and Re-Evaluation :: Patient and were informed workup is negative. The cause of her pain is unknown. Discharge Plan Triage Chief Complaint: General Illness Other Complaint: Back ED Provider: Ambrose Lutz Dx/Rx/DC Orders Clinical Impression: Upper back pain on left side, Chills, Nausea & vomiting Instructions: ED Pain, Acute, Uncertain Cause Prescriptions: No Action ferrous sulfate 325 mg (65 mg iron) Tablet 325 mg PO DAILY 1 mg Tablet 1 tab PO DAILY Primary Care Provider: Huang Messer Referrals: Huang Messer MD [Primary Care Provider] - 3-5 Days if not improving Activity Restrictions/Additional Instructions: 1. Recommend ice 6-10 times a day. 2. Recommend ibuprofen, 4 tablets every 8 hours, or 2 Aleve tablets every 12 hours for the next 3 to 5 days. Print Language: Lithuanian Disposition Disposition: Home, Self Care
[2024-01-27 16:09] VITALS: BP 102/67; PULSE 70; RESP 16; O2SAT 98
[2024-01-27 16:11] LABS: Absolute Lymphocyte Count 3.29 X10^3/uL (0.83-4.51); Absolute Neutrophil Count 4.5 X10^3/uL (2.0-7.7); Basophil# 0.07 X10^3/uL; Basophil% 0.8 % (0-1); Eosinophil# 0.23 X10^3/uL; Eosinophils% 2.6 % (0-5); Hematocrit 42.1 % (37-47); Hemoglobin 13.3 g/dL (12.0-15.0); Lymphocyte # 3.29 X10^3/ul (0.83-4.51); Lymphocyte % 37.5 % (19-41); Mean Corp Hgb Conc 31.6 g/dL (32-36); Mean Corpuscular Hgb 25.9 pg (27.0-32.0); Mean Corpuscular Volume 81.9 fL (81-99); Mean Platelet Vol. 10.7 fl (6.2-12.0); Monocyte# 0.72 X10^3/uL; Monocyte% 8.2 % (0-10); NRBC Flagged by Analyzer 0 % (0-5); Neutrophil # 4.45 X10^3/uL (2.7-7.7); Neutrophil % 50.7 % (47-70); Platelet Count 320 K/mm3 (150-450); RBC Distribution Width CV 13.2 % (11.6-14.6); RBC Distribution Width SD 39.4 fl (35.1-43.9); Red Blood Count 5.14 M/mm3 (4.2-5.4); White Blood Count 8.8 K/mm3 (4.4-11.0)
--- NOTE | 2024-01-27 16:30 | RAD_ITS ---
EXAM: XR CHEST, 2 VIEWS CLINICAL INDICATION: chills pain left side posteriiorly TECHNIQUE: Frontal and lateral views of the chest. COMPARISON: No relevant prior studies available. FINDINGS: LUNGS AND PLEURAL SPACES: Unremarkable. No consolidation or edema. No pneumothorax. No effusion. HEART: Unremarkable. Cardiac silhouette not enlarged. MEDIASTINUM: Central airways and mediastinal contour are unremarkable. BONES/JOINTS: Unremarkable. No acute fracture. SOFT TISSUES: Unremarkable. RAD/Chest PA and Lateral IMPRESSION: No radiographic evidence of acute cardiopulmonary disease. Electronically Signed: Sal Paiz MD at 17:08 EDT ,
[2024-01-27 16:41] LABS: Anion Gap 4 (5-15); BUN 10 mg/dL (7-18); BUN/Creat Ratio 14.1 RATIO (10-20); Calcium,Total 9.5 mg/dL (8.5-10.1); Chloride 112 mmol/L (98-107); Creatinine, Serum 0.71 mg/dL (0.55-1.02); EST Glomerular Filtration Rate 101 mL/min (>60); Est Glom Filt Rate - Afr Amer 122 mL/min (>60); Estimated Creatinine Clearance 114.85 ml/min; Glucose 93 mg/dL (74-106); Sodium Level 138 mmol/L (136-145)
[2024-01-27 17:46] VITALS: BP 103/69; PULSE 89; RESP 14; TEMP 36.6; O2SAT 100
== END 2024-01-27 18:04 | disposition home or self-care (01) ==
PROVIDERS: Emergency Provider Emergency Medicine; PCP Family Medicine; Visit Provider Emergency Medicine
DX: M54.6 Pain in thoracic spine (principal); R11.2 Nausea with vomiting, unspecified; M25.512 Pain in left shoulder; R68.83 Chills (without fever)
CPT/HCPCS: 71046; 80048; 81001; 81025; 85025; 99283